=== PATIENT | male | born 1950 | race Caucasian/White ===

== ENCOUNTER 2019-05-11 08:21 | Emergency (ER) | payer BC ==
[~2019-05-11] VITALS: Ht 177.8 cm; Wt 86.4 kg
[2019-05-11 08:26] VITALS: TEMP 96.7
[2019-05-11 09:20] LABS: BASO % 0.3 % (0.0-2.0); EOS % 0.1 % (0-4.0); GRAN # 7.4 (1.4-6.5); GRAN % 79.8 % (42.2-75.2); HEMATOCRIT 41.9 % (42.0-52.0); LYMPH % 10.3 % (20.0-51.0); MEAN CELL VOLUME 90 fl (80.0-100.0); MEAN CORPUSCULAR HEMOGLOBIN 30 pg (27.0-31.0); MEAN CORPUSCULAR HGB CONC 33 g/dl (33.0-37.0); MONO # 0.9 (0.1-0.6); MONO % 9.2 % (1.7-9.3); PLATELET COUNT 336 K/mm3 (130-400); RED BLOOD COUNT 4.64 M/mm3 (4.20-5.60); REDCELL DISTRIBUTION WIDTH-CV 12.9 % (11.5-14.5)
[2019-05-11 09:23] LABS: MUCOUS Present /lpf; PH 6 (5-8); SQUAMOUS EPITHELIAL None Seen /hpf; URINE APPEARANCE Clear; URINE BACTERIA None Seen /hpf; URINE BILIRUBIN Negative (NEGATIVE); URINE BLOOD 1+ (NEGATIVE); URINE COLOR Yellow; URINE GLUCOSE Negative (NEGATIVE); URINE KETONE Negative (NEGATIVE); URINE LEUKOCYTE ESTERASE Negative (NEGATIVE); URINE NITRATE Negative (NEGATIVE); URINE PROTEIN(semi-quant) Negative (NEGATIVE); URINE UROBILINOGEN Negative (NEGATIVE); URINE WBC 0-2 /hpf
[2019-05-11 09:30] LABS: ALBUMIN 4.3 gm/dL (3.5-5.0); BILIRUBIN,TOTAL 1.5 mg/dL (0.0-1.0); CALCIUM 9.5 mg/dL (8.4-10.2); CREATININE, serum 1.52 (0.66-1.25); TOTAL PROTEIN 7.7 gm/dL (6.4-8.2)
[2019-05-11 10:05] LABS: COLLECTION METHOD CATHETER
[2019-05-11 10:56] VITALS: BP 123/75; PULSE 64
== END 2019-05-11 11:02 | disposition home or self-care (01) ==
LOC: COL.ER 08:21
PROVIDERS: Nurse Practitioner Primary Care
DX: N40.1 Benign prostatic hyperplasia with lower urinary tract symptoms (principal)
CPT/HCPCS: J2405